=== PATIENT | female | born 1985 | race Caucasian/White ===

== ENCOUNTER 2016-10-05 09:31 | Emergency (ER) | payer SELFPAY ==
[~2016-10-05] VITALS: Ht 162.6 cm; Wt 129.0 kg
[2016-10-05 09:35] VITALS: BP 151/94; TEMP 98.2
[2016-10-05] MEDS ORDERED: PREDNISONE20 MG PO (10:37)
[2016-10-05] MEDS ORDERED: KEPPRA 500MG500 MG PO (10:38)
[2016-10-05] MEDS ORDERED: KLOR-CON SPRIN10 MEQ PO (10:39)
[2016-10-05 10:50] LABS: BASO % 0.2 % (0.0-2.0); EOS # 0.1 (0.0-0.7); EOS % 1.7 % (0-4.0); GRAN # 4.6 (1.4-6.5); GRAN % 71.2 % (42.2-75.2); HEMATOCRIT 39.2 % (37.0-47.0); HEMOGLOBIN 13.1 g/dl (12.5-16.0); LYMPH # 1.4 (1.2-3.4); LYMPH % 21.8 % (20.0-51.0); MEAN CELL VOLUME 89 fl (80.0-100.0); MEAN CORPUSCULAR HEMOGLOBIN 30 pg (27.0-31.0); MEAN CORPUSCULAR HGB CONC 33 g/dl (33.0-37.0); MEAN PLATELET VOLUME 10.1 fl (7.4-10.4); MONO # 0.3 (0.1-0.6); MONO % 4.8 % (1.7-9.3); PLATELET COUNT 263 K/mm3 (130-400); RED BLOOD COUNT 4.41 M/mm3 (4.10-5.30); REDCELL DISTRIBUTION WIDTH-CV 13.9 % (11.5-14.5); WHITE BLOOD COUNT 6.4 K/mm3 (4.8-10.8)
[2016-10-05 10:58] LABS: PH 7 (5-8); URINE APPEARANCE Cloudy; URINE BACTERIA Rare /hpf; URINE BILIRUBIN Negative (NEGATIVE); URINE BLOOD 3+ (NEGATIVE); URINE COLOR Yellow; URINE GLUCOSE Negative (NEGATIVE); URINE KETONE Negative (NEGATIVE); URINE UROBILINOGEN Negative (NEGATIVE)
[2016-10-05 11:04] LABS: ADJUSTED CALCIUM 9.5 mg/dL (8.4-10.2); BILIRUBIN,TOTAL 0.5 mg/dL (0.0-1.0); CALCIUM 9.5 mg/dL (8.4-10.2); CREATININE, serum 0.8 mg/dL (0.52-1.25); TOTAL PROTEIN 7.4 gm/dL (6.4-8.2)
[2016-10-05] MEDS ORDERED: NORCO 325 MG-7.1 TAB PO (11:26)
[2016-10-05] MEDS ORDERED: ZOFRAN ODT4 MG PO (11:26)
[2016-10-05 11:40] VITALS: PULSE 99
== END 2016-10-05 14:51 | disposition home or self-care (01) ==
LOC: COL.ER 09:31
PROVIDERS: Physician Assistant
DX: R10.31 Right lower quadrant pain (principal); R10.11 Right upper quadrant pain; Z87.442 Personal history of urinary calculi; E66.01 Morbid (severe) obesity due to excess calories; Z68.42 Body mass index [BMI] 45.0-49.9, adult
CPT/HCPCS: J1170; J2405; J7030

== ENCOUNTER 2016-10-10 10:42 | Emergency (ER) | payer MEDICAID ==
[~2016-10-10] VITALS: Ht 162.6 cm; Wt 128.6 kg
[~2016-10-10 10:42] MED LIST: KEPPRA 500MG500 MG PO; KLOR-CON SPRIN10 MEQ PO; NORCO 325 MG-7.1 TAB PO; PREDNISONE20 MG PO; ZOFRAN ODT4 MG PO
[2016-10-10 11:28] LABS: PH 6 (5-8); SQUAMOUS EPITHELIAL 20-50 /hpf; URINE APPEARANCE Cloudy; URINE BACTERIA None Seen /hpf; URINE BILIRUBIN Negative (NEGATIVE); URINE BLOOD 3+ (NEGATIVE); URINE COLOR Red; URINE GLUCOSE Negative (NEGATIVE); URINE KETONE Negative (NEGATIVE); URINE RBC >50 /hpf; URINE UROBILINOGEN Negative (NEGATIVE)
[2016-10-10 13:10] VITALS: BP 110/78; PULSE 93; TEMP 98.1
== END 2016-10-10 13:10 | disposition home or self-care (01) ==
LOC: COL.ER 10:42
PROVIDERS: Nurse Practitioner
DX: R10.31 Right lower quadrant pain (principal); R31.9 Hematuria, unspecified; N20.0 Calculus of kidney; Z87.442 Personal history of urinary calculi; M54.89 Other dorsalgia
CPT/HCPCS: J2360

== ENCOUNTER 2016-12-10 18:26 | Emergency (ER) | payer MEDICAID ==
[~2016-12-10] VITALS: Ht 162.6 cm; Wt 128.6 kg
[2016-12-10 18:29] VITALS: TEMP 97.9
[2016-12-10] MEDS ORDERED: CYMBALTA 30MG30 MG PO (19:06)
[2016-12-10] MEDS ORDERED: UROCIT-K 5540 MG/TAB PO (19:07)
[2016-12-10 19:50] LABS: B-TYPE NATRIURETIC PEPTIDE 85 pg/mL (0-125); TROPONIN-I < 0.012 ng/mL (0.000-0.034)
[2016-12-10] MEDS ORDERED: ULTRAM 50MG TAB50 MG PO (20:40)
[2016-12-10 21:16] VITALS: BP 104/68; PULSE 90
[2016-12-10] MEDS ORDERED: KEPPRA 500MG500 MG PO (21:21)
== END 2016-12-10 21:31 | disposition home or self-care (01) ==
LOC: COL.ER 18:26
PROVIDERS: Emergency Medicine
DX: R56.9 Unspecified convulsions (principal); T42.6X6A Underdosing of other antiepileptic and sedative-hypnotic drugs, initial encounter; Z91.138 Patient's unintentional underdosing of medication regimen for other reason; R07.9 Chest pain, unspecified; Z95.0 Presence of cardiac pacemaker; R06.00 Dyspnea, unspecified

== ENCOUNTER 2016-12-16 10:34 | Emergency (ER) | payer MEDICAID ==
[~2016-12-16] VITALS: Ht 162.6 cm; Wt 128.6 kg
[~2016-12-16 10:34] MED LIST changes: +CYMBALTA 30MG30 MG PO; +ULTRAM 50MG TAB50 MG PO; +UROCIT-K 5540 MG/TAB PO
[2016-12-16] MEDS ORDERED: LIORESAL 1010 MG/TAB PO (13:03)
[2016-12-16] MEDS ORDERED: PERCOCET 325 MG1 TA2 PO (13:03)
[2016-12-16 13:22] VITALS: BP 130/76; PULSE 85; TEMP 98.1
== END 2016-12-16 13:24 | disposition home or self-care (01) ==
LOC: COL.ER 10:34
DX: M54.5 Low back pain (principal); M62.830 Muscle spasm of back; W10.8XXA Fall (on) (from) other stairs and steps, initial encounter; Y92.89 Other specified places as the place of occurrence of the external cause; Z95.0 Presence of cardiac pacemaker
CPT/HCPCS: J3360

== ENCOUNTER 2017-01-31 21:57 | Emergency (ER) | payer MEDICAID ==
[~2017-01-31] VITALS: Ht 162.6 cm; Wt 128.6 kg
[~2017-01-31 21:57] MED LIST changes: +LIORESAL 1010 MG/TAB PO; +PERCOCET 325 MG1 TA2 PO
[2017-01-31 22:00] VITALS: TEMP 98
[2017-01-31] MEDS ORDERED: PLAQUENIL 200M200 MG PO (22:11)
[2017-01-31 22:58] LABS: BASO % 0.3 % (0.0-2.0); EOS # 0.1 (0.0-0.7); EOS % 1.2 % (0-4.0); GRAN # 4.9 (1.4-6.5); GRAN % 63.5 % (42.2-75.2); HEMATOCRIT 43.7 % (37.0-47.0); HEMOGLOBIN 14.5 g/dl (12.5-16.0); LYMPH # 2.3 (1.2-3.4); LYMPH % 30.1 % (20.0-51.0); MEAN CELL VOLUME 89 fl (80.0-100.0); MEAN CORPUSCULAR HEMOGLOBIN 30 pg (27.0-31.0); MEAN CORPUSCULAR HGB CONC 33 g/dl (33.0-37.0); MEAN PLATELET VOLUME 10.3 fl (7.4-10.4); MONO # 0.4 (0.1-0.6); MONO % 4.6 % (1.7-9.3); PLATELET COUNT 280 K/mm3 (130-400); RED BLOOD COUNT 4.91 M/mm3 (4.10-5.30); REDCELL DISTRIBUTION WIDTH-CV 14.4 % (11.5-14.5); WHITE BLOOD COUNT 7.7 K/mm3 (4.8-10.8)
[2017-01-31 23:05] LABS: PH 5 (5-8); URINE APPEARANCE Clear; URINE BACTERIA Rare /hpf; URINE BILIRUBIN Negative (NEGATIVE); URINE BLOOD Negative (NEGATIVE); URINE COLOR Yellow; URINE GLUCOSE Negative (NEGATIVE); URINE KETONE Negative (NEGATIVE); URINE UROBILINOGEN Negative (NEGATIVE)
[2017-01-31 23:07] LABS: CALCIUM 9.5 mg/dL (8.4-10.2); CREATININE, serum 0.96 mg/dL (0.52-1.25); POTASSIUM 3.3 mmol/L (3.4-5.0)
[2017-01-31] MEDS ORDERED: PHENERGAN 25 TA25 MG PO (23:15)
[2017-01-31] MEDS ORDERED: K-TAB10 PO (23:15)
[2017-02-01 00:49] VITALS: BP 115/75; PULSE 82
== END 2017-02-01 00:50 | disposition home or self-care (01) ==
LOC: COL.ER 21:57
PROVIDERS: Emergency Medicine
DX: R10.9 Unspecified abdominal pain (principal); E87.6 Hypokalemia; G40.909 Epilepsy, unspecified, not intractable, without status epilepticus; F32.9 Major depressive disorder, single episode, unspecified; Z95.0 Presence of cardiac pacemaker; Z90.49 Acquired absence of other specified parts of digestive tract
CPT/HCPCS: J1170; J2550; J7030

== ENCOUNTER 2017-03-11 15:17 | Emergency (ER) | payer MEDICAID ==
[~2017-03-11] VITALS: Ht 162.6 cm; Wt 123.6 kg
[~2017-03-11 15:17] MED LIST changes: +K-TAB10 PO; +PHENERGAN 25 TA25 MG PO; +PLAQUENIL 200M200 MG PO
[2017-03-11 15:32] VITALS: BP 120/67; TEMP 97.3
[2017-03-11] MEDS ORDERED: PLAQUENIL 200M200 MG PO (16:11)
[2017-03-11] MEDS ORDERED: NORCO 325 MG-51 TAB PO (16:47)
[2017-03-11] MEDS ORDERED: CRUTCHES MC (16:52)
[2017-03-11 17:29] VITALS: PULSE 98
== END 2017-03-11 17:09 | disposition home or self-care (01) ==
LOC: COL.ER 15:17
DX: S80.811A Abrasion, right lower leg, initial encounter (principal); G40.909 Epilepsy, unspecified, not intractable, without status epilepticus; I42.9 Cardiomyopathy, unspecified; F32.9 Major depressive disorder, single episode, unspecified; F41.9 Anxiety disorder, unspecified; F17.210 Nicotine dependence, cigarettes, uncomplicated; Z95.0 Presence of cardiac pacemaker; Z90.49 Acquired absence of other specified parts of digestive tract; Z90.89 Acquired absence of other organs; Z98.890 Other specified postprocedural states; W10.9XXA Fall (on) (from) unspecified stairs and steps, initial encounter; Y92.008 Other place in unspecified non-institutional (private) residence as the place of occurrence of the external cause

== ENCOUNTER 2017-03-19 18:20 | Emergency (ER) | payer MEDICAID ==
[~2017-03-19] VITALS: Ht 162.6 cm; Wt 124.5 kg
[~2017-03-19 18:20] MED LIST changes: +CRUTCHES MC; +NORCO 325 MG-51 TAB PO
[2017-03-19 18:29] VITALS: TEMP 98.7
[2017-03-19 19:10] LABS: PH 5 (5-8); SQUAMOUS EPITHELIAL 20-50 /hpf; URINE APPEARANCE Cloudy; URINE BACTERIA Rare /hpf; URINE BILIRUBIN Negative (NEGATIVE); URINE BLOOD 3+ (NEGATIVE); URINE COLOR Yellow; URINE GLUCOSE Negative (NEGATIVE); URINE KETONE Negative (NEGATIVE); URINE RBC >50 /hpf; URINE UROBILINOGEN Negative (NEGATIVE); URINE WBC None Seen /hpf
[2017-03-19 20:23] LABS: BASO % 0.1 % (0.0-2.0); EOS # 0.1 (0.0-0.7); GRAN # 4.7 (1.4-6.5); GRAN % 68.7 % (42.2-75.2); HEMATOCRIT 37.3 % (37.0-47.0); HEMOGLOBIN 12.3 g/dl (12.5-16.0); LYMPH # 1.7 (1.2-3.4); LYMPH % 24.3 % (20.0-51.0); MEAN CELL VOLUME 89 fl (80.0-100.0); MEAN CORPUSCULAR HEMOGLOBIN 29 pg (27.0-31.0); MEAN CORPUSCULAR HGB CONC 33 g/dl (33.0-37.0); MEAN PLATELET VOLUME 10.1 fl (7.4-10.4); MONO # 0.3 (0.1-0.6); MONO % 4.8 % (1.7-9.3); PLATELET COUNT 237 K/mm3 (130-400); REDCELL DISTRIBUTION WIDTH-CV 14.6 % (11.5-14.5); WHITE BLOOD COUNT 6.8 K/mm3 (4.8-10.8)
[2017-03-19] MEDS ORDERED: ZOFRAN 4MG T4 MG/TAB PO (20:30)
[2017-03-19 20:34] LABS: CALCIUM 9.1 mg/dL (8.4-10.2); CREATININE, serum 0.82 mg/dL (0.52-1.25)
[2017-03-19 20:59] VITALS: BP 113/75; PULSE 88
== END 2017-03-19 21:00 | disposition home or self-care (01) ==
LOC: COL.ER 18:20
PROVIDERS: Emergency Medicine; Nurse Practitioner
DX: N20.1 Calculus of ureter (principal); Z87.442 Personal history of urinary calculi; M32.9 Systemic lupus erythematosus, unspecified
CPT/HCPCS: J1170; J2550; J7030

== ENCOUNTER 2017-03-27 21:39 | Emergency (ER) | payer MEDICAID ==
[~2017-03-27] VITALS: Ht 165.1 cm; Wt 129.1 kg
[~2017-03-27 21:39] MED LIST changes: +ZOFRAN 4MG T4 MG/TAB PO
[2017-03-27 21:42] VITALS: BP 115/75; TEMP 98.4
[2017-03-27] MEDS ORDERED: ULTRAM 50MG TAB50 MG PO (21:45)
[2017-03-27] MEDS ORDERED: BACTRIM DS 8001 TAB PO (21:46)
[2017-03-27 22:36] LABS: BASO % 0.4 % (0.0-2.0); EOS # 0.2 (0.0-0.7); EOS % 2.4 % (0-4.0); GRAN # 4.7 (1.4-6.5); GRAN % 66.2 % (42.2-75.2); LYMPH # 1.8 (1.2-3.4); LYMPH % 25.9 % (20.0-51.0); MEAN CELL VOLUME 88 fl (80.0-100.0); MEAN CORPUSCULAR HEMOGLOBIN 30 pg (27.0-31.0); MEAN CORPUSCULAR HGB CONC 33 g/dl (33.0-37.0); MEAN PLATELET VOLUME 9.8 fl (7.4-10.4); MONO # 0.3 (0.1-0.6); MONO % 4.8 % (1.7-9.3); PLATELET COUNT 298 K/mm3 (130-400); RED BLOOD COUNT 4.41 M/mm3 (4.10-5.30); REDCELL DISTRIBUTION WIDTH-CV 14.3 % (11.5-14.5); WHITE BLOOD COUNT 7.1 K/mm3 (4.8-10.8)
[2017-03-27 22:43] LABS: PH 5 (5-8); SQUAMOUS EPITHELIAL 0-2 /hpf; URINE APPEARANCE Hazy; URINE BACTERIA None Seen /hpf; URINE BILIRUBIN Negative (NEGATIVE); URINE BLOOD 3+ (NEGATIVE); URINE COLOR Yellow; URINE GLUCOSE Negative (NEGATIVE); URINE KETONE Negative (NEGATIVE); URINE RBC >50 /hpf; URINE UROBILINOGEN Negative (NEGATIVE)
[2017-03-27 22:44] LABS: URINE WBC 20-50 /hpf
[2017-03-27 22:45] LABS: ADJUSTED CALCIUM 9.3 mg/dL (8.4-10.2); ALBUMIN 4.2 gm/dL (3.5-5.0); BILIRUBIN,TOTAL 0.4 mg/dL (0.0-1.0); CALCIUM 9.5 mg/dL (8.4-10.2); CREATININE, serum 0.94 mg/dL (0.52-1.25); POTASSIUM 3.8 mmol/L (3.4-5.0); TOTAL PROTEIN 7.8 gm/dL (6.4-8.2)
[2017-03-27 23:01] LABS: C-REACTIVE PROTEIN 1.8 mg/dL (0.0-0.9)
[2017-03-28 00:13] VITALS: PULSE 82
== END 2017-03-28 00:16 | disposition home or self-care (01) ==
LOC: COL.ER 21:39
PROVIDERS: Family Medicine
DX: N92.0 Excessive and frequent menstruation with regular cycle (principal); G40.909 Epilepsy, unspecified, not intractable, without status epilepticus; I42.9 Cardiomyopathy, unspecified; Z87.442 Personal history of urinary calculi; Z95.0 Presence of cardiac pacemaker; Z98.51 Tubal ligation status
CPT/HCPCS: J1170; J2550; J7030

== ENCOUNTER 2017-04-19 19:54 | Emergency (ER) | payer MEDICAID ==
[~2017-04-19] VITALS: Ht 162.6 cm; Wt 128.2 kg
[~2017-04-19 19:54] MED LIST changes: +BACTRIM DS 8001 TAB PO
[2017-04-19 19:56] VITALS: BP 146/87; TEMP 99.1
[2017-04-19 20:50] LABS: BASO % 0.1 % (0.0-2.0); EOS # 0.2 (0.0-0.7); GRAN # 5.2 (1.4-6.5); GRAN % 67.3 % (42.2-75.2); LYMPH % 25.3 % (20.0-51.0); MEAN CELL VOLUME 91 fl (80.0-100.0); MEAN CORPUSCULAR HGB CONC 33 g/dl (33.0-37.0); MEAN PLATELET VOLUME 9.7 fl (7.4-10.4); MONO # 0.3 (0.1-0.6); MONO % 3.9 % (1.7-9.3); PLATELET COUNT 264 K/mm3 (130-400); RED BLOOD COUNT 3.81 M/mm3 (4.10-5.30); REDCELL DISTRIBUTION WIDTH-CV 14.6 % (11.5-14.5); WHITE BLOOD COUNT 7.8 K/mm3 (4.8-10.8)
[2017-04-19 20:53] LABS: HEMATOCRIT 34.5 % (37.0-47.0); HEMOGLOBIN 11.3 g/dl (12.5-16.0); MEAN CORPUSCULAR HEMOGLOBIN 30 pg (27.0-31.0)
[2017-04-19 21:05] LABS: ADJUSTED CALCIUM 9.2 mg/dL (8.4-10.2); ALBUMIN 3.6 gm/dL (3.5-5.0); BILIRUBIN,TOTAL 0.4 mg/dL (0.0-1.0); CALCIUM 8.9 mg/dL (8.4-10.2); CREATININE, serum 0.75 mg/dL (0.52-1.25); POTASSIUM 3.6 mmol/L (3.4-5.0); TOTAL PROTEIN 6.8 gm/dL (6.4-8.2)
[2017-04-19 21:18] LABS: PH 6 (5-8); URINE APPEARANCE Cloudy; URINE BACTERIA Rare /hpf; URINE BILIRUBIN Negative (NEGATIVE); URINE BLOOD 3+ (NEGATIVE); URINE COLOR Yellow; URINE GLUCOSE Negative (NEGATIVE); URINE KETONE Trace (NEGATIVE); URINE RBC >50 /hpf; URINE UROBILINOGEN Negative (NEGATIVE)
[2017-04-19 22:20] VITALS: PULSE 96
== END 2017-04-19 22:26 | disposition home or self-care (01) ==
LOC: COL.ER 19:54
PROVIDERS: Emergency Medicine
DX: R31.9 Hematuria, unspecified (principal); N39.0 Urinary tract infection, site not specified; G40.909 Epilepsy, unspecified, not intractable, without status epilepticus; G72.9 Myopathy, unspecified; G89.29 Other chronic pain; M32.9 Systemic lupus erythematosus, unspecified; F17.210 Nicotine dependence, cigarettes, uncomplicated; Z90.89 Acquired absence of other organs; Z90.49 Acquired absence of other specified parts of digestive tract; Z95.0 Presence of cardiac pacemaker
CPT/HCPCS: J1170; J2550; J7030

== ENCOUNTER 2017-05-07 15:22 | Emergency (ER) | payer MEDICAID ==
[~2017-05-07] VITALS: Ht 162.6 cm; Wt 123.6 kg
[2017-05-07 15:34] VITALS: BP 137/84; TEMP 99
[2017-05-07 16:51] VITALS: PULSE 110
== END 2017-05-07 16:51 | disposition home or self-care (01) ==
LOC: COL.ER 15:22
DX: S99.911A Unspecified injury of right ankle, initial encounter (principal); F17.210 Nicotine dependence, cigarettes, uncomplicated; W19.XXXA Unspecified fall, initial encounter; X50.1XXA Overexertion from prolonged static or awkward postures, initial encounter
CPT/HCPCS: L2114

== ENCOUNTER 2017-05-29 18:01 | Emergency (ER) | payer MEDICAID ==
[~2017-05-29] VITALS: Ht 162.6 cm; Wt 139.4 kg
[2017-05-29 18:14] VITALS: BP 146/71; TEMP 98.7
[2017-05-29] MEDS ORDERED: ULTRAM 50MG TAB50 MG PO (18:19)
[2017-05-29] MEDS ORDERED: WELLBUTRIN 100100 MG PO (18:19)
[2017-05-29] MEDS ORDERED: AMBIEN 10MG10 MG PO (18:19)
[2017-05-29 19:47] LABS: PH 6 (5-8); URINE BACTERIA None Seen /hpf; URINE BILIRUBIN Negative (NEGATIVE); URINE BLOOD 3+ (NEGATIVE); URINE COLOR Yellow; URINE GLUCOSE Negative (NEGATIVE); URINE KETONE Negative (NEGATIVE); URINE RBC >50 /hpf; URINE UROBILINOGEN Negative (NEGATIVE)
[2017-05-29 19:48] LABS: URINE APPEARANCE Cloudy
[2017-05-29 19:55] LABS: BASO % 0.1 % (0.0-2.0); EOS # 0.1 (0.0-0.7); EOS % 1.3 % (0-4.0); GRAN # 5.9 (1.4-6.5); HEMATOCRIT 39.8 % (37.0-47.0); HEMOGLOBIN 13.1 g/dl (12.5-16.0); LYMPH # 2.1 (1.2-3.4); LYMPH % 24.4 % (20.0-51.0); MEAN CELL VOLUME 88 fl (80.0-100.0); MEAN CORPUSCULAR HEMOGLOBIN 29 pg (27.0-31.0); MEAN CORPUSCULAR HGB CONC 33 g/dl (33.0-37.0); MEAN PLATELET VOLUME 10.1 fl (7.4-10.4); MONO # 0.3 (0.1-0.6); PLATELET COUNT 251 K/mm3 (130-400); RED BLOOD COUNT 4.51 M/mm3 (4.10-5.30); REDCELL DISTRIBUTION WIDTH-CV 13.6 % (11.5-14.5); WHITE BLOOD COUNT 8.4 K/mm3 (4.8-10.8)
[2017-05-29 20:04] LABS: CALCIUM 9.4 mg/dL (8.4-10.2); CREATININE, serum 0.82 mg/dL (0.52-1.25); POTASSIUM 3.7 mmol/L (3.4-5.0)
[2017-05-29] MEDS ORDERED: NORCO 325 MG-51 TAB PO (20:18)
[2017-05-29] MEDS ORDERED: FLOMAX 0.40.4 MG/CAP PO (20:18)
[2017-05-29 20:26] VITALS: PULSE 89
== END 2017-05-29 20:30 | disposition home or self-care (01) ==
LOC: COL.ER 18:01
PROVIDERS: Emergency Medicine
DX: R10.9 Unspecified abdominal pain (principal); F17.210 Nicotine dependence, cigarettes, uncomplicated; Z32.02 Encounter for pregnancy test, result negative; Z87.442 Personal history of urinary calculi; Z90.49 Acquired absence of other specified parts of digestive tract
CPT/HCPCS: J1170

== ENCOUNTER 2017-07-30 22:26 | Emergency (ER) | payer MEDICAID ==
[~2017-07-30] VITALS: Ht 162.6 cm; Wt 120.5 kg
[~2017-07-30 22:26] MED LIST changes: +AMBIEN 10MG10 MG PO; +FLOMAX 0.40.4 MG/CAP PO; +WELLBUTRIN 100100 MG PO
[2017-07-30 22:27] VITALS: TEMP 97.9
[2017-07-30 23:29] LABS: COLLECTION METHOD CLEAN CATCH
[2017-07-30 23:38] LABS: BASO % 0.3 % (0.0-2.0); EOS # 0.3 (0.0-0.7); EOS % 3.4 % (0-4.0); GRAN # 4.7 (1.4-6.5); HEMATOCRIT 42.6 % (37.0-47.0); LYMPH # 2.6 (1.2-3.4); LYMPH % 32.2 % (20.0-51.0); MEAN CELL VOLUME 88 fl (80.0-100.0); MEAN CORPUSCULAR HEMOGLOBIN 29 pg (27.0-31.0); MEAN CORPUSCULAR HGB CONC 33 g/dl (33.0-37.0); MEAN PLATELET VOLUME 9.9 fl (7.4-10.4); MONO # 0.4 (0.1-0.6); MONO % 4.8 % (1.7-9.3); PLATELET COUNT 295 K/mm3 (130-400); RED BLOOD COUNT 4.82 M/mm3 (4.10-5.30)
[2017-07-30 23:44] LABS: INFLUENZA A NEGATIVE; INFLUENZA B NEGATIVE
[2017-07-30 23:55] LABS: ADJUSTED CALCIUM 9.1 mg/dL (8.4-10.2); ALANINE AMINOTRANSFERASE 29 U/L (9-52); ALBUMIN 4.3 gm/dL (3.5-5.0); ALKALINE PHOSPHATASE 109 U/L (50-136); ANION GAP 8 mmol/L (7-16); BILIRUBIN,TOTAL 0.6 mg/dL (0.0-1.0); BLOOD UREA NITROGEN 14 mg/dL (7-17); CALCIUM 9.3 mg/dL (8.4-10.2); CARBON DIOXIDE 24 mmol/L (22-30); CHLORIDE 106 mmol/L (98-107); CREATININE, serum 0.85 mg/dL (0.52-1.25); GLUCOSE 91 mg/dL (74-106); POTASSIUM 4.2 mmol/L (3.4-5.0); SODIUM 138 mmol/L (137-145); TOTAL PROTEIN 8.3 gm/dL (6.4-8.2)
[2017-07-30 23:59] LABS: MUCOUS Present /lpf; PH 5 (5-8); SQUAMOUS EPITHELIAL 20-50 /hpf; URINE APPEARANCE Cloudy; URINE BACTERIA Rare /hpf; URINE BILIRUBIN Negative (NEGATIVE); URINE BLOOD Negative (NEGATIVE); URINE COLOR Yellow; URINE GLUCOSE Negative (NEGATIVE); URINE KETONE Negative (NEGATIVE); URINE LEUKOCYTE ESTERASE 1+ (NEGATIVE); URINE PROTEIN(semi-quant) 1+ (NEGATIVE); URINE UROBILINOGEN >=4.0 mg/dL (NEGATIVE)
[2017-07-31 00:31] LABS: C-REACTIVE PROTEIN 1.7 mg/dL (0.0-0.9); PHOSPHOROUS 3.6 mg/dL (2.5-4.5)
[2017-07-31 00:37] LABS: ERYTHROCYTE SEDIMENTATION RATE 42 mm/hr (0-20)
[2017-07-31 00:42] LABS: TROPONIN-I < 0.012 ng/mL (0.000-0.034)
[2017-07-31 01:49] LABS: COLLECTION METHOD CATHETER
[2017-07-31 01:54] LABS: PH 5 (5-8); SQUAMOUS EPITHELIAL 0-2 /hpf; URINE APPEARANCE Clear; URINE BACTERIA None Seen /hpf; URINE BILIRUBIN Negative (NEGATIVE); URINE BLOOD 1+ (NEGATIVE); URINE COLOR Straw; URINE GLUCOSE Negative (NEGATIVE); URINE KETONE Negative (NEGATIVE); URINE LEUKOCYTE ESTERASE 1+ (NEGATIVE); URINE PROTEIN(semi-quant) Negative (NEGATIVE); URINE RBC 0-2 /hpf; URINE UROBILINOGEN Negative (NEGATIVE)
[2017-07-31] MEDS ORDERED: KEPPRA 500MG500 MG PO (02:06)
[2017-07-31 02:24] VITALS: BP 115/68; PULSE 87
== END 2017-07-31 02:27 | disposition home or self-care (01) ==
LOC: COL.ER 22:26
PROVIDERS: Emergency Medicine
DX: G40.909 Epilepsy, unspecified, not intractable, without status epilepticus (principal); Z90.49 Acquired absence of other specified parts of digestive tract; Z98.51 Tubal ligation status; Z87.39 Personal history of other diseases of the musculoskeletal system and connective tissue
CPT/HCPCS: J1170; J1200; J1953; J2550; J7030

== ENCOUNTER 2017-08-02 10:27 | Emergency (ER) | payer MEDICAID ==
[~2017-08-02] VITALS: Ht 162.6 cm; Wt 119.1 kg
[2017-08-02 10:35] VITALS: TEMP 98.6
[2017-08-02 11:36] LABS: BASO % 0.2 % (0.0-2.0); EOS # 0.2 (0.0-0.7); EOS % 2.8 % (0-4.0); GRAN # 6.3 (1.4-6.5); GRAN % 72.8 % (42.2-75.2); HEMATOCRIT 42.1 % (37.0-47.0); HEMOGLOBIN 13.9 g/dl (12.5-16.0); LYMPH # 1.7 (1.2-3.4); LYMPH % 19.7 % (20.0-51.0); MEAN CELL VOLUME 90 fl (80.0-100.0); MEAN CORPUSCULAR HEMOGLOBIN 30 pg (27.0-31.0); MEAN CORPUSCULAR HGB CONC 33 g/dl (33.0-37.0); MEAN PLATELET VOLUME 10.4 fl (7.4-10.4); MONO # 0.4 (0.1-0.6); MONO % 4.3 % (1.7-9.3); PLATELET COUNT 299 K/mm3 (130-400); RED BLOOD COUNT 4.68 M/mm3 (4.10-5.30); WHITE BLOOD COUNT 8.6 K/mm3 (4.8-10.8)
[2017-08-02 11:46] LABS: ADJUSTED CALCIUM 9.1 mg/dL (8.4-10.2); ALANINE AMINOTRANSFERASE 28 U/L (9-52); ALBUMIN 4.2 gm/dL (3.5-5.0); ALKALINE PHOSPHATASE 112 U/L (50-136); ANION GAP 9 mmol/L (7-16); BILIRUBIN,TOTAL 0.4 mg/dL (0.0-1.0); BLOOD UREA NITROGEN 16 mg/dL (7-17); C-REACTIVE PROTEIN 1.2 mg/dL (0.0-0.9); CALCIUM 9.3 mg/dL (8.4-10.2); CARBON DIOXIDE 23 mmol/L (22-30); CHLORIDE 107 mmol/L (98-107); GLUCOSE 100 mg/dL (74-106); POTASSIUM 4.3 mmol/L (3.4-5.0); SODIUM 139 mmol/L (137-145); TOTAL PROTEIN 7.7 gm/dL (6.4-8.2)
[2017-08-02 12:00] LABS: PROLACTIN 9.6 ng/mL (3.0-18.6)
[2017-08-02 12:12] LABS: TROPONIN-I < 0.012 ng/mL (0.000-0.034)
[2017-08-02 12:16] LABS: COLLECTION METHOD CATHETER
[2017-08-02 12:26] LABS: MUCOUS Present /lpf; PH 5 (5-8); URINE APPEARANCE Clear; URINE BACTERIA None Seen /hpf; URINE BILIRUBIN Negative (NEGATIVE); URINE BLOOD 2+ (NEGATIVE); URINE COLOR Yellow; URINE GLUCOSE Negative (NEGATIVE); URINE KETONE Negative (NEGATIVE); URINE LEUKOCYTE ESTERASE Negative (NEGATIVE); URINE PROTEIN(semi-quant) Negative (NEGATIVE); URINE RBC 0-2 /hpf; URINE UROBILINOGEN Negative (NEGATIVE); URINE WBC 0-2 /hpf
[2017-08-02 13:40] VITALS: BP 129/92; PULSE 93
== END 2017-08-02 13:37 | disposition home or self-care (01) ==
LOC: COL.ER 10:27
PROVIDERS: Emergency Medicine
DX: R51 Headache (principal); R07.9 Chest pain, unspecified; G40.909 Epilepsy, unspecified, not intractable, without status epilepticus; F17.210 Nicotine dependence, cigarettes, uncomplicated; Z86.2 Personal history of diseases of the blood and blood-forming organs and certain disorders involving the immune mechanism
CPT/HCPCS: J2060; J2405; J7030

== ENCOUNTER 2017-08-14 14:04 | Emergency (ER) | payer MEDICAID ==
[~2017-08-14] VITALS: Ht 162.6 cm; Wt 121.8 kg
[2017-08-14 14:08] VITALS: TEMP 97.1
[2017-08-14 14:51] LABS: COLLECTION METHOD CLEAN CATCH
[2017-08-14 14:55] LABS: BASO % 0.4 % (0.0-2.0); EOS # 0.2 (0.0-0.7); EOS % 2.9 % (0-4.0); GRAN # 4.8 (1.4-6.5); GRAN % 67.2 % (42.2-75.2); HEMATOCRIT 43.1 % (37.0-47.0); LYMPH # 1.8 (1.2-3.4); LYMPH % 25.5 % (20.0-51.0); MEAN CELL VOLUME 90 fl (80.0-100.0); MEAN CORPUSCULAR HEMOGLOBIN 29 pg (27.0-31.0); MEAN CORPUSCULAR HGB CONC 33 g/dl (33.0-37.0); MEAN PLATELET VOLUME 10.2 fl (7.4-10.4); MONO # 0.3 (0.1-0.6); MONO % 3.9 % (1.7-9.3); PLATELET COUNT 280 K/mm3 (130-400); WHITE BLOOD COUNT 7.2 K/mm3 (4.8-10.8)
[2017-08-14 15:02] LABS: MUCOUS Present /lpf; PH 6 (5-8); SQUAMOUS EPITHELIAL 20-50 /hpf; URINE APPEARANCE Cloudy; URINE BACTERIA None Seen /hpf; URINE BILIRUBIN Negative (NEGATIVE); URINE BLOOD 3+ (NEGATIVE); URINE COLOR Red; URINE GLUCOSE Negative (NEGATIVE); URINE KETONE Negative (NEGATIVE); URINE LEUKOCYTE ESTERASE Negative (NEGATIVE); URINE PROTEIN(semi-quant) 2+ (NEGATIVE); URINE RBC >50 /hpf; URINE UROBILINOGEN Negative (NEGATIVE)
[2017-08-14 15:13] LABS: ADJUSTED CALCIUM 9.2 mg/dL (8.4-10.2); ALBUMIN 4.2 gm/dL (3.5-5.0); BILIRUBIN,TOTAL 0.4 mg/dL (0.0-1.0); C-REACTIVE PROTEIN 1.5 mg/dL (0.0-0.9); CALCIUM 9.4 mg/dL (8.4-10.2); CREATININE, serum 0.81 mg/dL (0.52-1.25); POTASSIUM 4.2 mmol/L (3.4-5.0); TOTAL PROTEIN 7.8 gm/dL (6.4-8.2)
[2017-08-14 16:21] VITALS: BP 128/78; PULSE 74
== END 2017-08-14 16:27 | disposition home or self-care (01) ==
LOC: COL.ER 14:04
PROVIDERS: Family Medicine
DX: R10.9 Unspecified abdominal pain (principal); Z90.89 Acquired absence of other organs
CPT/HCPCS: J1170; J2405; J2550; J7030

== ENCOUNTER 2017-09-22 13:00 | Emergency (ER) | payer MEDICAID ==
[~2017-09-22] VITALS: Ht 162.6 cm; Wt 121.8 kg
[2017-09-22 13:05] VITALS: TEMP 98.4
[2017-09-22] MEDS ORDERED: KEPPRA1000 MG PO (13:54)
[2017-09-22] MEDS ORDERED: AMBIEN 10MG10 MG PO (13:55)
[2017-09-22] MEDS ORDERED: WELLBUTRIN 100100 MG PO (13:55)
[2017-09-22] MEDS ORDERED: KLONOPIN 0.5MG0.5 MG PO (13:56)
[2017-09-22 14:16] LABS: COLLECTION METHOD CLEAN CATCH
[2017-09-22 14:18] LABS: BASO % 0.2 % (0.0-2.0); EOS % 0.3 % (0-4.0); GRAN # 7.4 (1.4-6.5); GRAN % 77.5 % (42.2-75.2); HEMATOCRIT 40.6 % (37.0-47.0); HEMOGLOBIN 13.7 g/dl (12.5-16.0); LYMPH # 1.6 (1.2-3.4); LYMPH % 16.7 % (20.0-51.0); MEAN CELL VOLUME 88 fl (80.0-100.0); MEAN CORPUSCULAR HEMOGLOBIN 30 pg (27.0-31.0); MEAN CORPUSCULAR HGB CONC 34 g/dl (33.0-37.0); MEAN PLATELET VOLUME 9.9 fl (7.4-10.4); MONO # 0.5 (0.1-0.6); MONO % 5.1 % (1.7-9.3); PLATELET COUNT 274 K/mm3 (130-400); REDCELL DISTRIBUTION WIDTH-CV 13.5 % (11.5-14.5)
[2017-09-22 14:25] LABS: MUCOUS Present /lpf; PH 5 (5-8); URINE APPEARANCE Cloudy; URINE BACTERIA None Seen /hpf; URINE BILIRUBIN Negative (NEGATIVE); URINE BLOOD 3+ (NEGATIVE); URINE COLOR Amber; URINE GLUCOSE Negative (NEGATIVE); URINE KETONE Negative (NEGATIVE); URINE LEUKOCYTE ESTERASE Negative (NEGATIVE); URINE NITRATE Negative (NEGATIVE); URINE PROTEIN(semi-quant) 2+ (NEGATIVE); URINE RBC >50 /hpf; URINE UROBILINOGEN Negative (NEGATIVE)
[2017-09-22 14:31] LABS: ALBUMIN 4.2 gm/dL (3.5-5.0); BILIRUBIN,TOTAL 0.3 mg/dL (0.0-1.0); C-REACTIVE PROTEIN 1.4 mg/dL (0.0-0.9); CALCIUM 9.6 mg/dL (8.4-10.2); CREATININE, serum 0.89 mg/dL (0.52-1.25); POTASSIUM 3.5 mmol/L (3.4-5.0); TOTAL PROTEIN 7.7 gm/dL (6.4-8.2)
[2017-09-22] MEDS ORDERED: NORCO 325 MG-51 TAB PO (15:41)
[2017-09-22 15:58] VITALS: BP 136/99; PULSE 90
== END 2017-09-22 15:58 | disposition home or self-care (01) ==
LOC: COL.ER 13:00
PROVIDERS: Emergency Medicine
DX: N23 Unspecified renal colic (principal); Z87.442 Personal history of urinary calculi; Z90.49 Acquired absence of other specified parts of digestive tract; Z90.89 Acquired absence of other organs; Z98.51 Tubal ligation status; F17.210 Nicotine dependence, cigarettes, uncomplicated
CPT/HCPCS: J1170; J2405; J7030

== ENCOUNTER 2017-10-12 10:33 | Emergency (ER) | payer MEDICAID ==
[~2017-10-12] VITALS: Ht 162.6 cm; Wt 118.2 kg
[~2017-10-12 10:33] MED LIST changes: +KEPPRA1000 MG PO; +KLONOPIN 0.5MG0.5 MG PO
[2017-10-12 11:38] LABS: COLLECTION METHOD CLEAN CATCH
[2017-10-12 11:38] LABS: BASO % 0.1 % (0.0-2.0); EOS # 0.2 (0.0-0.7); EOS % 3.2 % (0-4.0); GRAN # 4.7 (1.4-6.5); GRAN % 69.3 % (42.2-75.2); HEMATOCRIT 41.4 % (37.0-47.0); HEMOGLOBIN 13.5 g/dl (12.5-16.0); LYMPH # 1.5 (1.2-3.4); LYMPH % 22.2 % (20.0-51.0); MEAN CELL VOLUME 91 fl (80.0-100.0); MEAN CORPUSCULAR HEMOGLOBIN 30 pg (27.0-31.0); MEAN CORPUSCULAR HGB CONC 33 g/dl (33.0-37.0); MEAN PLATELET VOLUME 10.3 fl (7.4-10.4); MONO # 0.3 (0.1-0.6); MONO % 4.9 % (1.7-9.3); PLATELET COUNT 225 K/mm3 (130-400); RED BLOOD COUNT 4.57 M/mm3 (4.10-5.30); REDCELL DISTRIBUTION WIDTH-CV 13.5 % (11.5-14.5)
[2017-10-12 11:47] LABS: MUCOUS Present /lpf; PH 6 (5-8); URINE APPEARANCE Cloudy; URINE BACTERIA Moderate /hpf; URINE BILIRUBIN Negative (NEGATIVE); URINE BLOOD 3+ (NEGATIVE); URINE COLOR Amber; URINE GLUCOSE Negative (NEGATIVE); URINE KETONE Negative (NEGATIVE); URINE LEUKOCYTE ESTERASE 2+ (NEGATIVE); URINE NITRATE Positive (NEGATIVE); URINE PROTEIN(semi-quant) 1+ (NEGATIVE); URINE RBC >50 /hpf; URINE UROBILINOGEN Negative (NEGATIVE)
[2017-10-12 11:58] LABS: ALBUMIN 3.7 gm/dL (3.5-5.0); BILIRUBIN,TOTAL 0.3 mg/dL (0.0-1.0); CALCIUM 9.5 mg/dL (8.4-10.2); CREATININE, serum 0.75 mg/dL (0.52-1.25); POTASSIUM 4.1 mmol/L (3.4-5.0); TOTAL PROTEIN 7.2 gm/dL (6.4-8.2)
[2017-10-12] MEDS ORDERED: ULTRAM 50MG TAB50 MG PO (12:20)
[2017-10-12] MEDS ORDERED: CIPRO 500MG TA500 MG PO (12:34)
[2017-10-12] MEDS ORDERED: NORCO 325 MG-51 TAB PO (13:03)
[2017-10-12 13:04] VITALS: BP 130/70; PULSE 83; TEMP 98.2
== END 2017-10-12 13:03 | disposition home or self-care (01) ==
LOC: COL.ER 10:33
PROVIDERS: Family Medicine
DX: N20.1 Calculus of ureter (principal); N39.0 Urinary tract infection, site not specified; F17.210 Nicotine dependence, cigarettes, uncomplicated; Z87.442 Personal history of urinary calculi
CPT/HCPCS: J0696; J1170; J2405; J7030

== ENCOUNTER 2017-10-25 16:03 | Emergency (ER) | payer MEDICAID ==
[~2017-10-25] VITALS: Ht 162.6 cm; Wt 119.1 kg
[~2017-10-25 16:03] MED LIST changes: +CIPRO 500MG TA500 MG PO; +TESSALON P100 MG/CAP PO
[2017-10-25 16:08] VITALS: BP 135/97; TEMP 97.5
[2017-10-25 16:34] LABS: COLLECTION METHOD CLEAN CATCH
[2017-10-25 16:49] LABS: MUCOUS Present /lpf; PH 6 (5-8); URINE APPEARANCE Hazy; URINE BACTERIA None Seen /hpf; URINE BILIRUBIN Negative (NEGATIVE); URINE BLOOD 3+ (NEGATIVE); URINE CALCIUM OXALATE CRYSTAL Present /hpf; URINE COLOR Red; URINE GLUCOSE Negative (NEGATIVE); URINE KETONE Negative (NEGATIVE); URINE LEUKOCYTE ESTERASE Negative (NEGATIVE); URINE NITRATE Negative (NEGATIVE); URINE PROTEIN(semi-quant) 2+ (NEGATIVE); URINE RBC >50 /hpf; URINE UROBILINOGEN Negative (NEGATIVE)
[2017-10-25 17:27] LABS: BASO % 0.3 % (0.0-2.0); EOS # 0.2 (0.0-0.7); EOS % 2.5 % (0-4.0); GRAN % 72.5 % (42.2-75.2); HEMATOCRIT 45.1 % (37.0-47.0); HEMOGLOBIN 14.7 g/dl (12.5-16.0); LYMPH # 1.4 (1.2-3.4); LYMPH % 20.5 % (20.0-51.0); MEAN CELL VOLUME 91 fl (80.0-100.0); MEAN CORPUSCULAR HEMOGLOBIN 30 pg (27.0-31.0); MEAN CORPUSCULAR HGB CONC 33 g/dl (33.0-37.0); MEAN PLATELET VOLUME 10.3 fl (7.4-10.4); MONO # 0.3 (0.1-0.6); MONO % 3.9 % (1.7-9.3); PLATELET COUNT 297 K/mm3 (130-400); RED BLOOD COUNT 4.96 M/mm3 (4.10-5.30); REDCELL DISTRIBUTION WIDTH-CV 13.6 % (11.5-14.5)
[2017-10-25 17:36] LABS: ALBUMIN 4.7 gm/dL (3.5-5.0); BILIRUBIN,TOTAL 0.4 mg/dL (0.0-1.0); CALCIUM 9.8 mg/dL (8.4-10.2); CREATININE, serum 0.92 mg/dL (0.52-1.25); POTASSIUM 3.6 mmol/L (3.4-5.0); TOTAL PROTEIN 8.4 gm/dL (6.4-8.2)
[2017-10-25] MEDS ORDERED: BACTRIM DS 8001 TAB PO (18:06)
[2017-10-25 19:22] VITALS: PULSE 105
== END 2017-10-25 19:24 | disposition home or self-care (01) ==
LOC: COL.ER 16:03
PROVIDERS: Emergency Medicine
DX: N39.0 Urinary tract infection, site not specified (principal); N23 Unspecified renal colic; F17.210 Nicotine dependence, cigarettes, uncomplicated; Z87.442 Personal history of urinary calculi; Z98.890 Other specified postprocedural states; Z90.89 Acquired absence of other organs; Z90.49 Acquired absence of other specified parts of digestive tract; Z95.0 Presence of cardiac pacemaker
CPT/HCPCS: J0696; J1170; J3010; J7030

== ENCOUNTER 2017-12-11 01:11 | Emergency (ER) | payer MEDICAID ==
[~2017-12-11] VITALS: Ht 162.6 cm; Wt 115.5 kg
[2017-12-11 01:33] VITALS: BP 121/81; TEMP 97.4
[2017-12-11 01:45] LABS: COLLECTION METHOD CLEAN CATCH
[2017-12-11 02:06] LABS: PH 6 (5-8); URINE APPEARANCE Cloudy; URINE BACTERIA Occasional /hpf; URINE BILIRUBIN Negative (NEGATIVE); URINE BLOOD 3+ (NEGATIVE); URINE COLOR Amber; URINE GLUCOSE Negative (NEGATIVE); URINE KETONE Negative (NEGATIVE); URINE LEUKOCYTE ESTERASE Trace (NEGATIVE); URINE NITRATE Negative (NEGATIVE); URINE PROTEIN(semi-quant) 2+ (NEGATIVE); URINE RBC >50 /hpf; URINE UROBILINOGEN Negative (NEGATIVE)
[2017-12-11 02:21] LABS: BASO % 0.2 % (0.0-2.0); EOS % 0.2 % (0-4.0); GRAN # 8.9 (1.4-6.5); GRAN % 66.9 % (42.2-75.2); HEMOGLOBIN 14.2 g/dl (12.5-16.0); LYMPH # 3.6 (1.2-3.4); LYMPH % 27.3 % (20.0-51.0); MEAN CELL VOLUME 86 fl (80.0-100.0); MEAN CORPUSCULAR HEMOGLOBIN 29 pg (27.0-31.0); MEAN CORPUSCULAR HGB CONC 34 g/dl (33.0-37.0); MEAN PLATELET VOLUME 10.3 fl (7.4-10.4); MONO # 0.7 (0.1-0.6); MONO % 5.1 % (1.7-9.3); PLATELET COUNT 262 K/mm3 (130-400); RED BLOOD COUNT 4.86 M/mm3 (4.10-5.30); REDCELL DISTRIBUTION WIDTH-CV 14.3 % (11.5-14.5)
[2017-12-11 02:31] LABS: ALBUMIN 3.9 gm/dL (3.5-5.0); BILIRUBIN,TOTAL 0.2 mg/dL (0.0-1.0); CALCIUM 9.2 mg/dL (8.4-10.2); CREATININE, serum 0.92 mg/dL (0.52-1.25); POTASSIUM 3.6 mmol/L (3.4-5.0); TOTAL PROTEIN 7.7 gm/dL (6.4-8.2)
[2017-12-11] MEDS ORDERED: CEFTIN 250250 MG/TAB PO (02:48)
[2017-12-11 03:56] VITALS: PULSE 93
== END 2017-12-11 03:52 | disposition home or self-care (01) ==
LOC: COL.ER 01:11
PROVIDERS: Nurse Practitioner
DX: N39.0 Urinary tract infection, site not specified (principal); F17.210 Nicotine dependence, cigarettes, uncomplicated; Z87.442 Personal history of urinary calculi; Z98.890 Other specified postprocedural states; Z90.89 Acquired absence of other organs; Z90.49 Acquired absence of other specified parts of digestive tract; Z95.0 Presence of cardiac pacemaker
CPT/HCPCS: J2405; J7030

== ENCOUNTER 2017-12-15 19:48 | Emergency (ER) | payer MEDICAID ==
[~2017-12-15] VITALS: Ht 162.6 cm; Wt 120.0 kg
[~2017-12-15 19:48] MED LIST changes: +CEFTIN 250250 MG/TAB PO
[2017-12-15 20:10] VITALS: TEMP 97.7
[2017-12-15 20:23] LABS: COLLECTION METHOD CLEAN CATCH
[2017-12-15 20:37] LABS: PH 6 (5-8); URINE APPEARANCE Cloudy; URINE BACTERIA None Seen /hpf; URINE BILIRUBIN Negative (NEGATIVE); URINE BLOOD 3+ (NEGATIVE); URINE COLOR Red; URINE GLUCOSE Negative (NEGATIVE); URINE KETONE Negative (NEGATIVE); URINE LEUKOCYTE ESTERASE Negative (NEGATIVE); URINE NITRATE Negative (NEGATIVE); URINE PROTEIN(semi-quant) 1+ (NEGATIVE); URINE RBC >50 /hpf; URINE UROBILINOGEN Negative (NEGATIVE)
[2017-12-15 20:37] LABS: BASO % 0.3 % (0.0-2.0); EOS # 0.3 (0.0-0.7); EOS % 3.5 % (0-4.0); GRAN # 5.1 (1.4-6.5); GRAN % 64.3 % (42.2-75.2); HEMATOCRIT 46.1 % (37.0-47.0); HEMOGLOBIN 15.7 g/dl (12.5-16.0); LYMPH # 2.2 (1.2-3.4); LYMPH % 27.9 % (20.0-51.0); MEAN CELL VOLUME 87 fl (80.0-100.0); MEAN CORPUSCULAR HEMOGLOBIN 30 pg (27.0-31.0); MEAN CORPUSCULAR HGB CONC 34 g/dl (33.0-37.0); MEAN PLATELET VOLUME 9.8 fl (7.4-10.4); MONO # 0.3 (0.1-0.6); MONO % 3.7 % (1.7-9.3); PLATELET COUNT 260 K/mm3 (130-400); RED BLOOD COUNT 5.29 M/mm3 (4.10-5.30); REDCELL DISTRIBUTION WIDTH-CV 14.3 % (11.5-14.5)
[2017-12-15 20:48] LABS: ALBUMIN 4.1 gm/dL (3.5-5.0); BILIRUBIN,TOTAL 0.4 mg/dL (0.0-1.0); C-REACTIVE PROTEIN 1.3 mg/dL (0.0-0.9); CALCIUM 9.6 mg/dL (8.4-10.2); CREATININE, serum 0.83 mg/dL (0.52-1.25); POTASSIUM 4.2 mmol/L (3.4-5.0); TOTAL PROTEIN 8.7 gm/dL (6.4-8.2)
[2017-12-15] MEDS ORDERED: FLOMAX 0.40.4 MG/CAP PO (21:09)
[2017-12-15] MEDS ORDERED: NORCO 325 MG-51 TAB PO (21:10)
[2017-12-15] MEDS ORDERED: ZOFRAN ODT4 MG PO (21:10)
[2017-12-15] MEDS ORDERED: PHENERGAN25 MG RC (22:22)
[2017-12-15 22:25] VITALS: BP 142/88; PULSE 91
== END 2017-12-15 22:28 | disposition home or self-care (01) ==
LOC: COL.ER 19:48
PROVIDERS: Nurse Practitioner
DX: R31.9 Hematuria, unspecified (principal); F41.9 Anxiety disorder, unspecified; F32.9 Major depressive disorder, single episode, unspecified; F17.210 Nicotine dependence, cigarettes, uncomplicated; Z87.442 Personal history of urinary calculi; Z95.0 Presence of cardiac pacemaker; Z90.89 Acquired absence of other organs; Z90.49 Acquired absence of other specified parts of digestive tract; Z98.51 Tubal ligation status; Z98.890 Other specified postprocedural states
CPT/HCPCS: J2405; J3010; J7030

== ENCOUNTER 2017-12-29 14:34 | Emergency (ER) | payer MEDICAID ==
[~2017-12-29] VITALS: Ht 162.6 cm; Wt 135.5 kg
[~2017-12-29 14:34] MED LIST changes: +PHENERGAN25 MG RC
[2017-12-29 14:54] LABS: COLLECTION METHOD CLEAN CATCH
[2017-12-29 15:03] LABS: PH 8 (5-8); URINE APPEARANCE Cloudy; URINE BACTERIA None Seen /hpf; URINE BILIRUBIN Negative (NEGATIVE); URINE BLOOD 3+ (NEGATIVE); URINE COLOR Yellow; URINE GLUCOSE Negative (NEGATIVE); URINE KETONE Negative (NEGATIVE); URINE LEUKOCYTE ESTERASE 3+ (NEGATIVE); URINE NITRATE Negative (NEGATIVE); URINE PROTEIN(semi-quant) 1+ (NEGATIVE); URINE RBC >50 /hpf; URINE UROBILINOGEN Negative (NEGATIVE)
[2017-12-29 15:28] VITALS: TEMP 98
[2017-12-29 15:40] LABS: BASO % 0.3 % (0.0-2.0); EOS # 0.3 (0.0-0.7); EOS % 3.6 % (0-4.0); GRAN # 5.6 (1.4-6.5); GRAN % 74.3 % (42.2-75.2); HEMATOCRIT 43.7 % (37.0-47.0); HEMOGLOBIN 14.4 g/dl (12.5-16.0); LYMPH # 1.3 (1.2-3.4); LYMPH % 17.5 % (20.0-51.0); MEAN CELL VOLUME 90 fl (80.0-100.0); MEAN CORPUSCULAR HEMOGLOBIN 30 pg (27.0-31.0); MEAN CORPUSCULAR HGB CONC 33 g/dl (33.0-37.0); MEAN PLATELET VOLUME 10.4 fl (7.4-10.4); MONO # 0.3 (0.1-0.6); PLATELET COUNT 218 K/mm3 (130-400); RED BLOOD COUNT 4.84 M/mm3 (4.10-5.30); REDCELL DISTRIBUTION WIDTH-CV 14.6 % (11.5-14.5)
[2017-12-29 15:51] LABS: ALBUMIN 3.8 gm/dL (3.5-5.0); BILIRUBIN,TOTAL 0.3 mg/dL (0.0-1.0); C-REACTIVE PROTEIN 1.3 mg/dL (0.0-0.9); CALCIUM 9.5 mg/dL (8.4-10.2); CREATININE, serum 0.84 mg/dL (0.52-1.25); POTASSIUM 4.2 mmol/L (3.4-5.0); TOTAL PROTEIN 7.8 gm/dL (6.4-8.2)
[2017-12-29 16:08] VITALS: BP 105/70; PULSE 116
== END 2017-12-29 16:11 | disposition home or self-care (01) ==
LOC: COL.ER 14:34
PROVIDERS: Family Medicine
DX: N20.1 Calculus of ureter (principal); Z87.442 Personal history of urinary calculi
CPT/HCPCS: J2405; J3010; J7030

== ENCOUNTER 2020-12-09 09:20 | Emergency (ER) | payer MEDICAID ==
[~2020-12-09] VITALS: Ht 165.1 cm; Wt 145.5 kg
[2020-12-09 09:27] VITALS: TEMP 97.9
[2020-12-09] MEDS ORDERED: DESYREL DIVIDO150 M1 PO (09:30)
[2020-12-09] MEDS ORDERED: VRAYLAR4.5 MG PO (09:30)
[2020-12-09] MEDS ORDERED: CLEOCIN HC150 MG/CAP PO (11:14)
[2020-12-09] MEDS ORDERED: TYLENOL 325MG325 MG PO (11:14)
[2020-12-09 11:24] VITALS: BP 136/79; PULSE 89
== END 2020-12-09 11:28 | disposition home or self-care (01) ==
LOC: COL.ER 09:20
DX: N61.0 Mastitis without abscess (principal); R00.0 Tachycardia, unspecified; G40.909 Epilepsy, unspecified, not intractable, without status epilepticus; Z95.0 Presence of cardiac pacemaker; Z88.0 Allergy status to penicillin; Z88.6 Allergy status to analgesic agent; Z88.8 Allergy status to other drugs, medicaments and biological substances; Z91.040 Latex allergy status

== ENCOUNTER 2021-04-19 09:54 | Emergency (ER) | payer MEDICAID ==
[~2021-04-19] VITALS: Ht 165.1 cm; Wt 150.0 kg
[~2021-04-19 09:54] MED LIST changes: +CLEOCIN HC150 MG/CAP PO; +DESYREL DIVIDO150 M1 PO; +TYLENOL 325MG325 MG PO; +VRAYLAR4.5 MG PO
[2021-04-19 10:07] VITALS: TEMP 97.9
[2021-04-19 10:26] LABS: COLLECTION METHOD CLEAN CATCH
[2021-04-19 10:30] LABS: BASO % 0.2 % (0.0-2.0); EOS # 0.2 (0.0-0.7); EOS % 1.8 % (0-4.0); GRAN # 7.2 (1.4-6.5); GRAN % 71.2 % (42.2-75.2); HEMATOCRIT 45.8 % (37.0-47.0); HEMOGLOBIN 14.8 g/dl (12.5-16.0); LYMPH # 2.3 (1.2-3.4); LYMPH % 22.3 % (20.0-51.0); MEAN CELL VOLUME 93 fl (80.0-100.0); MEAN CORPUSCULAR HEMOGLOBIN 30 pg (27.0-31.0); MEAN CORPUSCULAR HGB CONC 32 g/dl (33.0-37.0); MONO # 0.4 (0.1-0.6); PLATELET COUNT 326 K/mm3 (130-400); RED BLOOD COUNT 4.92 M/mm3 (4.10-5.30); REDCELL DISTRIBUTION WIDTH-CV 14.5 % (11.5-14.5)
[2021-04-19 10:37] LABS: BUDDING YEAST Present /hpf; MUCOUS Present /lpf; PH 6 (5-8); URINE APPEARANCE Cloudy; URINE BACTERIA Occasional /hpf; URINE BILIRUBIN Negative (NEGATIVE); URINE BLOOD Negative (NEGATIVE); URINE COLOR Yellow; URINE GLUCOSE 3+ (NEGATIVE); URINE KETONE Negative (NEGATIVE); URINE LEUKOCYTE ESTERASE 2+ (NEGATIVE); URINE NITRATE Negative (NEGATIVE); URINE PROTEIN(semi-quant) Negative (NEGATIVE); URINE UROBILINOGEN Negative (NEGATIVE)
[2021-04-19 10:40] LABS: ALBUMIN 3.9 gm/dL (3.5-5.0); BILIRUBIN,TOTAL 0.2 mg/dL (0.0-1.0); CALCIUM 9.1 mg/dL (8.4-10.2); CREATININE, serum 0.91 (0.52-1.25); POTASSIUM 4.3 mmol/L (3.4-5.0); TOTAL PROTEIN 7.4 gm/dL (6.4-8.2)
[2021-04-19] MEDS ORDERED: CEFTIN500 MG PO (12:48)
[2021-04-19] MEDS ORDERED: ZOFRAN ODT4 MG PO (12:50)
[2021-04-19] MEDS ORDERED: NORCO 325 MG-51 TAB PO (12:50)
[2021-04-19 13:15] VITALS: BP 130/68; PULSE 79
== END 2021-04-19 13:15 | disposition home or self-care (01) ==
LOC: COL.ER 09:54
PROVIDERS: Physician Assistant
DX: N30.91 Cystitis, unspecified with hematuria (principal); F31.9 Bipolar disorder, unspecified; R56.9 Unspecified convulsions; F17.200 Nicotine dependence, unspecified, uncomplicated; Z32.02 Encounter for pregnancy test, result negative; Z79.899 Other long term (current) drug therapy
CPT/HCPCS: J0696; J2270; J2405; J7030; Q9967

== ENCOUNTER 2021-07-25 17:29 | Inpatient (IN) | payer MEDICAID ==
[~2021-07-25] VITALS: Ht 165.1 cm; Wt 157.8 kg
[~2021-07-25 17:29] MED LIST changes: +CEFTIN500 MG PO
[2021-07-25 18:39] LABS: BASO % 0.3 % (0.0-2.0); EOS # 0.1 K/mm3 (0.0-0.7); GRAN # 7.2 K/mm3 (1.4-6.5); GRAN % 74.8 % (42.2-75.2); HEMATOCRIT 48.1 % (37.0-47.0); LYMPH # 1.9 K/mm3 (1.2-3.4); LYMPH % 19.3 % (20.0-51.0); MEAN CELL VOLUME 90 fl (80.0-100.0); MEAN CORPUSCULAR HEMOGLOBIN 30 pg (27.0-31.0); MEAN CORPUSCULAR HGB CONC 33 g/dl (33.0-37.0); MEAN PLATELET VOLUME 9.9 fl (7.4-10.4); MONO # 0.4 K/mm3 (0.1-0.6); MONO % 4.2 % (1.7-9.3); PLATELET COUNT 320 K/mm3 (130-400); RED BLOOD COUNT 5.35 M/mm3 (4.10-5.30)
[2021-07-25] MEDS ORDERED: KLONOPIN 1MG1 MG PO (18:47)
[2021-07-25 18:52] LABS: ALBUMIN 3.6 gm/dL (3.5-5.0); BILIRUBIN,TOTAL 0.3 mg/dL (0.2-1.2); CALCIUM 9.5 mg/dL (8.4-10.2); CREATININE, serum 1.06 mg/dL (0.57-1.11); POTASSIUM 4.3 mmol/L (3.5-4.5); TOTAL PROTEIN 8.2 gm/dL (6.2-8.1)
[2021-07-25 19:16] LABS: INR 1.1 (0.8-3.0); PROTHROMBIN TIME 12.3 SECONDS (9.7-12.8)
[2021-07-25 19:19] LABS: PARTIAL THROMBOPLASTIN TIME 29.6 SECONDS (26.0-37.0)
[2021-07-25 19:39] LABS: COLLECTION METHOD CLEAN CATCH
[2021-07-25 19:44] LABS: MUCOUS Present /lpf; PH 6 (5-8); URINE APPEARANCE Hazy; URINE BACTERIA Rare /hpf; URINE BILIRUBIN Negative (NEGATIVE); URINE BLOOD Negative (NEGATIVE); URINE COLOR Yellow; URINE GLUCOSE 3+ (NEGATIVE); URINE KETONE Negative (NEGATIVE); URINE LEUKOCYTE ESTERASE Negative (NEGATIVE); URINE NITRATE Negative (NEGATIVE); URINE PROTEIN(semi-quant) Negative (NEGATIVE); URINE RBC 0-2 /hpf; URINE UROBILINOGEN Negative (NEGATIVE)
--- NOTE | 2021-07-26 02:30 | NUR ---
Vancomycin Initial Dosing Pharmacy Note Ordering provider: ONUR Funes Indication/duration: Sepsis 2nd to cellulitis/possible PNA x 7 days Relevant comorbidities: DM LABS: WBC = 9.6, SCr = 1.06, Tmax = 99.1 F Recommendation: Will draw troughs and follow levels. Loading dose: 2.5 grams Maintenance dose: 1 gram every 8 hours Trough goal: 15-20 ug/mL
[2021-07-26 05:06] LABS: BASO % 0.1 % (0.0-2.0); EOS # 0.1 K/mm3 (0.0-0.7); EOS % 0.5 % (0-4.0); GRAN # 7.4 K/mm3 (1.4-6.5); GRAN % 81.4 % (42.2-75.2); HEMATOCRIT 42.7 % (37.0-47.0); LYMPH # 1.1 K/mm3 (1.2-3.4); LYMPH % 11.8 % (20.0-51.0); MEAN CORPUSCULAR HGB CONC 32 g/dl (33.0-37.0); MONO # 0.6 K/mm3 (0.1-0.6); PLATELET COUNT 229 K/mm3 (130-400); RED BLOOD COUNT 4.46 M/mm3 (4.10-5.30); REDCELL DISTRIBUTION WIDTH-CV 14.3 % (11.5-14.5)
[2021-07-26 05:24] LABS: CALCIUM 8.3 mg/dL (8.4-10.2); CREATININE, serum 0.88 mg/dL (0.57-1.11); POTASSIUM 4.3 mmol/L (3.5-4.5)
[2021-07-26 05:25] LABS: MEAN CELL VOLUME 96 fl (80.0-100.0); MEAN CORPUSCULAR HEMOGLOBIN 30 pg (27.0-31.0)
[2021-07-26 05:26] LABS: HEMOGLOBIN 13.5 g/dl (12.5-16.0)
--- NOTE | 2021-07-26 16:27 | NUR ---
Report received, awaiting patient arrival to the floor.
--- NOTE | 2021-07-26 22:11 | NUR ---
Patient assessed around 1919. Complained of level 8 pain at that time, and given PRN Morphine. Around 2129, complained of level 7 pain, and given another dose of PRN Morphine per orders. Pain to left armpit. Abscess to left armpit with small amount of yellow, thick drainage. Wound culture obtained, and sent to lab. PICC to RUE with IV fluids and ABXs running per orders. LS CTA in upper lobes, diminished in lower. HRR. BSAx4. Abdomen soft and non-tender. Voices no questions, needs, or concerns at this time. In bed with call light within reach.
[2021-07-26 22:39] VITALS: BP 111/66; PULSE 101; TEMP 98.3
[2021-07-26 23:51] VITALS: BP 112/61; PULSE 85; TEMP 99.1
--- NOTE | 2021-07-27 00:05 | NUR ---
Patient complaining of pain to left armpit. Given PRN Morphine as requested.
[2021-07-27 05:00] VITALS: BP 109/60; PULSE 89; TEMP 97.6
--- NOTE | 2021-07-27 05:04 | NUR ---
Patient has been receiving PRN Morphine about every two hours for pain as requested. Small amount of drainage from abscess. Continues on IV fluids and ABXs per orders. Voices no questions, needs, or concerns at this time. In bed with call light within reach.
[2021-07-27 06:55] LABS: HEMATOCRIT 37.3 % (37.0-47.0); HEMOGLOBIN 12.1 g/dl (12.5-16.0); MEAN CELL VOLUME 93 fl (80.0-100.0); MEAN CORPUSCULAR HEMOGLOBIN 30 pg (27.0-31.0); MEAN CORPUSCULAR HGB CONC 32 g/dl (33.0-37.0); MEAN PLATELET VOLUME 10.8 fl (7.4-10.4); PLATELET COUNT 187 K/mm3 (130-400); RED BLOOD COUNT 4.03 M/mm3 (4.10-5.30); REDCELL DISTRIBUTION WIDTH-CV 14.1 % (11.5-14.5)
[2021-07-27 07:08] LABS: CALCIUM 8.5 mg/dL (8.4-10.2); CREATININE, serum 0.64 mg/dL (0.57-1.11); POTASSIUM 3.8 mmol/L (3.5-4.5)
[2021-07-27 07:51] VITALS: BP 134/82; PULSE 92; TEMP 98
--- NOTE | 2021-07-27 08:55 | NUR ---
RA SPO2 83%. PLACED BACK ON 3 LPM NC 92%
--- NOTE | 2021-07-27 09:10 | NUR ---
Patient laying in bed upon entering the room. Patient remains in constant pain that she rates an 8/10. Patient was given PRN morphine. Patient's call light is not working, patient has been calling the desk phone for any needs. A work order has been placed for the call light.
--- NOTE | 2021-07-27 10:37 | NUR ---
Vancomycin Follow-up Pharmacy Note Current regimen: Vancomycin 1 gm IV q8h Vancomycin trough: 7.35 Adjustments: Increase Vancomycin to 1.5 gm IV q8h. Pharmacy will continue to closely monitor and check a Vancomycin trough on 07/28/21.
[2021-07-27 11:39] VITALS: BP 125/81; PULSE 100; TEMP 98
--- NOTE | 2021-07-27 11:48 | NUR ---
First visit from the medical insurance claims specialist. No needs right now.
[2021-07-27 16:13] VITALS: BP 107/63; PULSE 95; TEMP 98
--- NOTE | 2021-07-27 16:18 | NUR ---
beef cattle farm worker met with patient to discuss discharge plan. Patient reports that she lives at home with her life partner Rossi ([phone]) in [place]. Patient reports that she is fully independent with her activities of daily living and that she does not utilize any DME to assist with mobility. Patient has no oxygen needs. Patient reports that she does not have a PCP but she does utilize [facility] in for medication needs with no cost difficulty. Patient reports that she does not have a DPOA-HC established and verbalizes that she does not wish to create one at this time. Patient is not legally to Rossi and states that she has 5 children in total. Oldest child is Simoen Jones (18) whom she states does not have a cell phone. Education provided that if she wishes to not create a DPOA-HC, then legally Simone would be her legal decision maker for medical decisions. Patient verbalizes her understanding of this. Discharge plan: Home
--- NOTE | 2021-07-27 18:00 | NUR ---
Patient has continues to report her pain at an 8/10. Patient was given oxycodone for pain instead of morphine. Patient instructed to call if pain is not relieved.
[2021-07-27 19:29] VITALS: BP 124/69; PULSE 97; TEMP 98.1
[2021-07-27 23:58] VITALS: BP 101/61; PULSE 72; TEMP 98.5
[2021-07-28 04:08] VITALS: BP 104/56; PULSE 93; TEMP 98.5
--- NOTE | 2021-07-28 04:48 | NUR ---
Patient rested quietly throughout night, pain managment with prn oxycodone and Morphine, VS stable, telemetry in use, independent in cares, no s/s of hypo/hyper glycemia, tolerating IV abt w/o issue.
--- NOTE | 2021-07-28 07:17 | NUR ---
Patient c/o uncontrolled left axillary pain. Danni contacted, verbal order of a one time dose of ilana ordered.
[2021-07-28 07:43] LABS: BASO % 0.2 % (0.0-2.0); EOS # 0.1 K/mm3 (0.0-0.7); EOS % 1.7 % (0-4.0); GRAN # 2.9 K/mm3 (1.4-6.5); HEMOGLOBIN 11.9 g/dl (12.5-16.0); LYMPH # 1.5 K/mm3 (1.2-3.4); LYMPH % 31.9 % (20.0-51.0); MEAN CELL VOLUME 92 fl (80.0-100.0); MEAN CORPUSCULAR HEMOGLOBIN 30 pg (27.0-31.0); MEAN CORPUSCULAR HGB CONC 33 g/dl (33.0-37.0); MEAN PLATELET VOLUME 10.6 fl (7.4-10.4); MONO # 0.3 K/mm3 (0.1-0.6); MONO % 5.6 % (1.7-9.3); PLATELET COUNT 155 K/mm3 (130-400); RED BLOOD COUNT 3.94 M/mm3 (4.10-5.30); REDCELL DISTRIBUTION WIDTH-CV 14.1 % (11.5-14.5)
[2021-07-28 07:47] LABS: HEMATOCRIT 36.1 % (37.0-47.0)
[2021-07-28 08:04] VITALS: BP 117/69; PULSE 89; TEMP 98
[2021-07-28 08:13] LABS: CALCIUM 8.7 mg/dL (8.4-10.2); CREATININE, serum 0.66 mg/dL (0.57-1.11); POTASSIUM 3.8 mmol/L (3.5-4.5)
--- NOTE | 2021-07-28 08:57 | NUR ---
Scheduled medication given. Shift assessment preformed. Patient C/O of 810 pain in left axillary region. PRN medication given. PICC line flushed, blood return noted. No s/s of complications at this time. Patient states that she does not have an appetite at this time. Insulin not given. Scaling an flaking noted on patient's heels. Patient denies any further pain, discomfort, or further needs at this time. Call light in reach. VSS. Patient A&O.
[2021-07-28 12:03] VITALS: BP 123/66; PULSE 87; TEMP 98.2
[2021-07-28 16:00] VITALS: BP 120/85; PULSE 93; TEMP 97.9
--- NOTE | 2021-07-28 18:00 | NUR ---
Patient has been struggling with pain control this shift. PRN morphine and ilana given. Scheduled tylenol also given. Rests comfortably, but pain increases with movement. Patient is currently resting in bed eating supper. Antibiotics running as orderd. Denies any further needs at this time. VSS. Patient A&O. Call light in reach.
[2021-07-28 18:52] VITALS: BP 124/83; PULSE 77; TEMP 98.2
--- NOTE | 2021-07-28 22:47 | NUR ---
Patient assessed around 1929. Complained of level 10 pain to left armpit, radiating to left breast. Given PRN Roxicodone for pain as requested. Requested Morphine, but encouraged to take PO pain medication first. Requested Morphine around 2099 for level 9 pain. Given 2nd dose of Roxicodone per orders (may repeat if first dose not effective). Patient continued to complain of level 8 pain around 2229, and given PRN Morphine at that time. Continues on IV ABX per orders for abscess to left armpit. No drainage to area. Patient voices no further questions, needs, or concerns at this time. In bed with call light within reach.
[2021-07-28 23:43] VITALS: BP 102/64; PULSE 96; TEMP 98.2
[2021-07-29 04:11] VITALS: BP 111/65; PULSE 89; TEMP 98
--- NOTE | 2021-07-29 05:51 | NUR ---
Patient has been receiving PRN Roxicodone and Morphine for pain as requested. Did have patient try oral pain medication prior to IV pain medication. Recieved IV ABX per orders. In bed with call light within reach.
[2021-07-29 07:39] VITALS: BP 113/65; PULSE 91; TEMP 97.4
--- NOTE | 2021-07-29 09:50 | NUR ---
Patient laying in bed upon entering the room. Patient c/o pain in her left axilla. Patient requesting morphine and educated on why she is being given oxycodone instead. Patient seemed upset with the explanation. notified and plans to speak with patient.
[2021-07-29 11:17] VITALS: BP 96/65; PULSE 84; TEMP 98.5
[2021-07-29 15:47] VITALS: BP 112/52; PULSE 89; TEMP 98.8
[2021-07-29 19:17] VITALS: BP 137/68; PULSE 87; TEMP 97.9
[2021-07-29 23:16] VITALS: BP 140/63; PULSE 100; TEMP 98
--- NOTE | 2021-07-29 23:46 | NUR ---
ALERT AND OX4. DENIES SOA CHEST PAIN OR DIZZY. PAIN 9/10 TO LEFT UNDER ARM. MORPHINE AND PERC GIVEN. PM MEDS. RT UPPER ARM PICC FLUSHED. TELE- NSR. IND IN ROOM. NO DRAINAGE UNDER ARM. ZOFRAN FOR NAUSEA TONIGHT. POC DISCUSSED. CALL LIGHT WI REACH.
[2021-07-30] VITALS (7 sets, daily range): BP systolic 95–126; BP diastolic 41–92; PULSE 72–93; TEMP 97.2–98.2
[2021-07-30 06:53] LABS: CALCIUM 8.8 mg/dL (8.4-10.2); CREATININE, serum 0.71 mg/dL (0.57-1.11); POTASSIUM 3.7 mmol/L (3.5-4.5)
[2021-07-30 07:02] LABS: BASO % 0.4 % (0.0-2.0); EOS # 0.2 K/mm3 (0.0-0.7); EOS % 3.1 % (0-4.0); GRAN # 3.1 K/mm3 (1.4-6.5); GRAN % 60.5 % (42.2-75.2); HEMATOCRIT 37.3 % (37.0-47.0); HEMOGLOBIN 12.4 g/dl (12.5-16.0); LYMPH # 1.5 K/mm3 (1.2-3.4); LYMPH % 29.7 % (20.0-51.0); MEAN CELL VOLUME 91 fl (80.0-100.0); MEAN CORPUSCULAR HEMOGLOBIN 30 pg (27.0-31.0); MEAN CORPUSCULAR HGB CONC 33 g/dl (33.0-37.0); MEAN PLATELET VOLUME 9.7 fl (7.4-10.4); MONO # 0.3 K/mm3 (0.1-0.6); MONO % 5.7 % (1.7-9.3); PLATELET COUNT 225 K/mm3 (130-400); RED BLOOD COUNT 4.12 M/mm3 (4.10-5.30); REDCELL DISTRIBUTION WIDTH-CV 14.1 % (11.5-14.5)
--- NOTE | 2021-07-30 07:18 | NUR ---
NOTIFIED DR. RDZ OF PT PICC LINE HAVING TROUBLE WITH BLOOD RETURN. DRAWBENCH OPERATOR PERFORMED SEVERAL INTERVENTIONS. REQUEST FOR CATH FLOW ORDERS.
--- NOTE | 2021-07-30 08:30 | NUR ---
PT ALERT AND ORIENTED. PT ASKING FOR PAIN MEDICATIONS AND SCHEDULE. PT HAS DIMINISHED LUNG SOUNDS IN ALL LOBES. PT HAS MILD EDEMAN IN LOWER EXTREMITIES BILATERALLY, NO PITTING. PT HAS 2+ PULSES IN ALL EXTREMITIES. PT ABLE TO AMBULATE INDEPENDENTLY IN ROOM. PT HAS REDENNED LEFT AXILLA, TENDER TO TOUCH. PT CENTRAL LINE FLUSHED, NO BLOOD RETURN NOTED.
--- NOTE | 2021-07-30 10:46 | NUR ---
Cathflo administered per orders into red port at 0905. Rechecked for blood flow at 1028, blood return noted. Flushed with 10ml and medications administered per orders.
--- NOTE | 2021-07-30 13:06 | NUR ---
NOTED PT BLOOD PRESSURE LOW 95/51. RECHECKED AT THIS TIME 126/92
--- NOTE | 2021-07-30 17:05 | NUR ---
PT CONTINUING ON PLAN OF CARE. PT PAIN MANAGED WITH PRN MEDICATION PER ORDERS. PT VITAL SIGNS REMAINED STABLE THIS SHIFT, NO SIGNIFICANT CHANGES NOTED IN PT STATUS. SHOWER OFFERED, PT STATES, "MAYBE LATER." PT ABLE TO CALL FOR NEEDS.
--- NOTE | 2021-07-30 22:33 | NUR ---
ALERT AND OX4. DENIES SOA, CHEST PAIN OR DIZZY. RATES LT UNDER ARM PAIN 02/16. PERCOCET AND PM MEDS GIVEN. IV ANTIBOTICS, BLOOD SUGAR OBTAINED AND TREATED PER ORDER. POC DISCUSSSED. DC TELE. POSSIBLE DC TOMORROW. CALL LIGHT WI REACH.
[2021-07-31 00:05] VITALS: BP 121/53; PULSE 86; TEMP 98.5
--- NOTE | 2021-07-31 05:27 | NUR ---
RESTED THROUGH THE NIGHT WITHOUT INCIDENT. ANTICIPATES DC TODAY.
[2021-07-31 06:44] LABS: BASO % 0.4 % (0.0-2.0); EOS # 0.2 K/mm3 (0.0-0.7); EOS % 2.8 % (0-4.0); GRAN # 3.1 K/mm3 (1.4-6.5); GRAN % 58.2 % (42.2-75.2); HEMOGLOBIN 11.5 g/dl (12.5-16.0); LYMPH # 1.7 K/mm3 (1.2-3.4); LYMPH % 32.1 % (20.0-51.0); MEAN CELL VOLUME 94 fl (80.0-100.0); MEAN CORPUSCULAR HEMOGLOBIN 30 pg (27.0-31.0); MEAN CORPUSCULAR HGB CONC 32 g/dl (33.0-37.0); MEAN PLATELET VOLUME 9.9 fl (7.4-10.4); MONO # 0.3 K/mm3 (0.1-0.6); MONO % 5.7 % (1.7-9.3); PLATELET COUNT 186 K/mm3 (130-400); RED BLOOD COUNT 3.82 M/mm3 (4.10-5.30); REDCELL DISTRIBUTION WIDTH-CV 14.3 % (11.5-14.5)
[2021-07-31 06:52] LABS: HEMATOCRIT 35.8 % (37.0-47.0)
[2021-07-31 06:55] LABS: CREATININE, serum 0.72 mg/dL (0.57-1.11); POTASSIUM 3.7 mmol/L (3.5-4.5)
--- NOTE | 2021-07-31 07:29 | NUR ---
Report received from GOYO Fleming. Pt. resting in bed. This RN introduced self to patient. Pt. reports she would like her PRN pain medication. Pt.'s PRN pain med not due until around 0900. This jingle writer explained to the pt. she would bring in PRN pain medication when it is due. Pt. denies further needs at this time. Call light and belongings in reach.
[2021-07-31 08:27] VITALS: BP 125/73; PULSE 83; TEMP 97.6
--- NOTE | 2021-07-31 09:16 | NUR ---
Pt. progressing w/ plan of care. Assessment complete and AM meds given. Pt. denies needs at this time, call light and belongings in reach.
[2021-07-31] MEDS ORDERED: CLEOCIN HCL300 MG PO (09:33)
[2021-07-31] MEDS ORDERED: GLUCOPHAGE500 MG/TAB PO ×2 (09:33)
[2021-07-31] MEDS ORDERED: DOXYCYCLINE HY100 MG PO (09:34)
[2021-07-31] MEDS ORDERED: GLUCOPHAGE1000 MG PO (09:47)
--- NOTE | 2021-07-31 11:15 | NUR ---
Sales Incentive Analyst was notified that patient will discharge today and needs to establish primary care. PEREZ met with patient who would like to get set up with [facility] in [place], specifically Parul Hanna NP. PEREZ contacted [facility] and faxed clinical records. Appointment made for 08/16/21 @8703. PEREZ provided appointment to community program assistant.
--- NOTE | 2021-07-31 11:50 | NUR ---
Pt.'s PICC line removed per Dr. Corrales/ONUR Barros's order. Pt. tolerated removal well, PICC was removed by charge nurse Shay. Pt. agreeable to follow up with dermatology, general surgery, as well as her PCP. Pt. also agreeable to take new medications as prescribed. Pt. left floor via wheelchair w/ hospital staff SHYANN Meier.
== END 2021-07-31 11:50 | disposition home or self-care (01) | DRG 871 ==
LOC: COL.ER 17:29 → MEDICAL 21:34 → SURG 21:34 → MEDICAL 07-26 15:28
PROVIDERS: Emergency Medicine; Physician Assistant; Student in an Organized Health Care Education/Training Program; ADMIT Internal Medicine
PROC: 02HV33Z Insertion of Infusion Device into Superior Vena Cava, Percutaneous Approach (ICD-10-PCS; principal; 2021-07-26)
DX: A41.9 Sepsis, unspecified organism (principal); J96.01 Acute respiratory failure with hypoxia; J18.9 Pneumonia, unspecified organism; L03.112 Cellulitis of left axilla; L02.412 Cutaneous abscess of left axilla; L73.2 Hidradenitis suppurativa; G40.909 Epilepsy, unspecified, not intractable, without status epilepticus; F31.9 Bipolar disorder, unspecified; M32.9 Systemic lupus erythematosus, unspecified; I48.0 Paroxysmal atrial fibrillation; N20.0 Calculus of kidney; E11.65 Type 2 diabetes mellitus with hyperglycemia; G47.30 Sleep apnea, unspecified; Z20.822 Contact with and (suspected) exposure to COVID-19; Z95.0 Presence of cardiac pacemaker; Z88.0 Allergy status to penicillin; Z87.891 Personal history of nicotine dependence
CPT/HCPCS: 99223-AI; 99232-AI; 99239; C1751; J0692; J1650; J1815; J2270; J2405; J2997; J3370; J7030; J7040; J7050

== ENCOUNTER 2021-08-03 20:16 | Emergency (ER) | payer MEDICAID ==
[~2021-08-03] VITALS: Ht 165.1 cm; Wt 150.0 kg
[~2021-08-03 20:16] MED LIST changes: +CLEOCIN HCL300 MG PO; +DOXYCYCLINE HY100 MG PO; +GLUCOPHAGE1000 MG PO; +GLUCOPHAGE500 MG/TAB PO; +KLONOPIN 1MG1 MG PO
[2021-08-03 20:20] VITALS: TEMP 97.6
[2021-08-03 21:34] LABS: COLLECTION METHOD CLEAN CATCH
[2021-08-03 21:42] LABS: MUCOUS Present (NOT PRESENT); PH 7 (5-8); URINE APPEARANCE Hazy (CLEAR/HAZY); URINE BACTERIA None Seen (NONE SEEN); URINE BILIRUBIN Negative (NEGATIVE); URINE BLOOD Negative (NEGATIVE); URINE COLOR Yellow (YELLOW); URINE GLUCOSE 3+ (NEGATIVE); URINE KETONE Negative (NEGATIVE); URINE LEUKOCYTE ESTERASE Trace (NEGATIVE); URINE NITRATE Negative (NEGATIVE); URINE PROTEIN(semi-quant) Negative (NEGATIVE); URINE UROBILINOGEN Negative (NEGATIVE)
[2021-08-03 22:21] LABS: BASO % 0.2 % (0.0-2.0); EOS # 0.2 K/mm3 (0.0-0.7); EOS % 2.5 % (0-4.0); GRAN # 6.3 K/mm3 (1.4-6.5); GRAN % 68.4 % (42.2-75.2); HEMATOCRIT 40.8 % (37.0-47.0); HEMOGLOBIN 13.8 g/dl (12.5-16.0); LYMPH # 2.2 K/mm3 (1.2-3.4); LYMPH % 23.6 % (20.0-51.0); MEAN CELL VOLUME 90 fl (80.0-100.0); MEAN CORPUSCULAR HEMOGLOBIN 30 pg (27.0-31.0); MEAN CORPUSCULAR HGB CONC 34 g/dl (33.0-37.0); MEAN PLATELET VOLUME 9.7 fl (7.4-10.4); MONO # 0.4 K/mm3 (0.1-0.6); MONO % 4.6 % (1.7-9.3); PLATELET COUNT 234 K/mm3 (130-400); RED BLOOD COUNT 4.56 M/mm3 (4.10-5.30); REDCELL DISTRIBUTION WIDTH-CV 14.2 % (11.5-14.5)
[2021-08-03 22:45] LABS: ALANINE AMINOTRANSFERASE 47 U/L (0-55); ALBUMIN 3.3 gm/dL (3.5-5.0); ALKALINE PHOSPHATASE 103 U/L (40-150); ANION GAP 16 mmol/L (7-16); AST,SGOT 25 U/L (5-34); BILIRUBIN,TOTAL 0.2 mg/dL (0.2-1.2); BLOOD UREA NITROGEN 11 mg/dL (7-19); C-REACTIVE PROTEIN 2.47 mg/dL (0.00-0.50); CARBON DIOXIDE 19 mmol/L (22-29); CHLORIDE 105 mmol/L (98-107); CREATININE, serum 0.85 mg/dL (0.57-1.11); GLUCOSE 249 mg/dL (70-99); POTASSIUM 4.2 mmol/L (3.5-4.5); SODIUM 140 mmol/L (136-145); TOTAL PROTEIN 7.5 gm/dL (6.2-8.1)
[2021-08-03 22:54] LABS: TROPONIN-I < 0.010 ng/mL (0.00-0.033)
[2021-08-04] MEDS ORDERED: NORCO 325 MG-51 TAB PO (01:29)
[2021-08-04 01:45] VITALS: BP 123/98; PULSE 109
== END 2021-08-04 01:45 | disposition home or self-care (01) ==
LOC: COL.ER 20:16
PROVIDERS: Physician Assistant; Student in an Organized Health Care Education/Training Program
DX: L03.114 Cellulitis of left upper limb (principal); L02.414 Cutaneous abscess of left upper limb; E11.9 Type 2 diabetes mellitus without complications; J18.9 Pneumonia, unspecified organism; L73.2 Hidradenitis suppurativa; G40.909 Epilepsy, unspecified, not intractable, without status epilepticus; M32.9 Systemic lupus erythematosus, unspecified; Z87.891 Personal history of nicotine dependence; Z20.822 Contact with and (suspected) exposure to COVID-19; Z79.84 Long term (current) use of oral hypoglycemic drugs; Z79.899 Other long term (current) drug therapy
CPT/HCPCS: J0692; J2270; J2405; J3370; J7030; J7040

== ENCOUNTER 2021-12-01 13:12 | Emergency (ER) | payer MEDICAID ==
[~2021-12-01] VITALS: Ht 165.1 cm; Wt 150.0 kg
[2021-12-01 15:39] LABS: BASO % 0.1 % (0.0-2.0); EOS # 0.1 K/mm3 (0.0-0.7); EOS % 1.8 % (0.0-4.0); GRAN # 5.3 K/mm3 (1.4-6.5); GRAN % 72.4 % (42.2-75.2); HEMATOCRIT 43.8 % (37.0-47.0); HEMOGLOBIN 14.8 g/dl (12.5-16.0); LYMPH # 1.5 K/mm3 (1.2-3.4); LYMPH % 21.1 % (20.0-51.0); MEAN CELL VOLUME 91 fl (80.0-100.0); MEAN CORPUSCULAR HEMOGLOBIN 31 pg (27-31); MEAN CORPUSCULAR HGB CONC 34 g/dl (33.0-37.0); MEAN PLATELET VOLUME 11.4 fl (7.4-10.4); MONO # 0.3 K/mm3 (0.1-0.6); MONO % 4.2 % (1.7-9.3); PLATELET COUNT 217 K/mm3 (130-400); RED BLOOD COUNT 4.83 M/mm3 (4.10-5.30)
[2021-12-01 15:56] LABS: ALBUMIN 3.3 gm/dL (3.5-5.0); BILIRUBIN,TOTAL 0.2 mg/dL (0.2-1.2); C-REACTIVE PROTEIN 2.75 mg/dL (0.00-0.50); CALCIUM 8.9 mg/dL (8.4-10.2); CREATININE, serum 0.9 mg/dL (0.57-1.11); POTASSIUM 4.1 mmol/L (3.5-4.5); TOTAL PROTEIN 7.5 gm/dL (6.2-8.1)
[2021-12-01 16:34] VITALS: TEMP 97.9
[2021-12-01] MEDS ORDERED: NORCO 325 MG-51 TAB PO (17:12)
[2021-12-01] MEDS ORDERED: DOXYCYCLINE 10100 MG PO (17:12)
[2021-12-01] MEDS ORDERED: CLEOCIN HCL300 MG PO (17:12)
[2021-12-01 17:25] VITALS: BP 122/89; PULSE 101
== END 2021-12-01 17:32 | disposition home or self-care (01) ==
LOC: COL.ER 13:12
PROVIDERS: Physician Assistant
DX: N61.0 Mastitis without abscess (principal); L73.2 Hidradenitis suppurativa; L03.317 Cellulitis of buttock; R79.82 Elevated C-reactive protein (CRP); R74.02 Elevation of levels of lactic acid dehydrogenase [LDH]; E11.9 Type 2 diabetes mellitus without complications; F17.210 Nicotine dependence, cigarettes, uncomplicated; Z88.0 Allergy status to penicillin; Z91.040 Latex allergy status; Z79.84 Long term (current) use of oral hypoglycemic drugs
CPT/HCPCS: J7030

== ENCOUNTER 2024-04-18 20:03 | Emergency (ER) | payer MEDICAID ==
[~2024-04-18] VITALS: Ht 162.6 cm; Wt 134.1 kg
[~2024-04-18 20:03] MED LIST changes: +CEPHALEXIN500 M1 PO; +DOXYCYCLINE 10100 MG PO
[2024-04-18 20:26] LABS: COLLECTION METHOD CLEAN CATCH
[2024-04-18 20:34] LABS: URINE APPEARANCE Cloudy (CLEAR/HAZY); URINE BLOOD 3+ (NEGATIVE); URINE COLOR Amber (YELLOW); URINE GLUCOSE Negative (NEGATIVE); URINE KETONE Negative (NEGATIVE); URINE NITRATE Negative (NEGATIVE); URINE PROTEIN(semi-quant) 1+ (NEGATIVE); URINE UROBILINOGEN 0.2 E.U/dL (0.2-1.0)
[2024-04-18 20:42] LABS: BASO % 0.2 % (0.0-2.0); EOS # 0.2 K/mm3 (0.0-0.7); EOS % 1.5 % (0.0-4.0); GRAN # 6.4 K/mm3 (1.4-6.5); GRAN % 63.4 % (42.2-75.2); HEMATOCRIT 45.3 % (37.0-47.0); HEMOGLOBIN 14.5 g/dl (12.5-16.0); LYMPH % 29.6 % (20.0-51.0); MEAN CELL VOLUME 92 fl (80.0-100.0); MEAN CORPUSCULAR HEMOGLOBIN 30 pg (27-31); MEAN CORPUSCULAR HGB CONC 32 g/dl (33.0-37.0); MEAN PLATELET VOLUME 9.4 fl (7.4-10.4); MONO # 0.5 K/mm3 (0.1-0.6); MONO % 5.1 % (1.7-9.3); PLATELET COUNT 365 K/mm3 (130-400); RED BLOOD COUNT 4.92 M/mm3 (4.10-5.30); REDCELL DISTRIBUTION WIDTH-CV 14.9 % (11.5-14.5)
[2024-04-18] MEDS ORDERED: NS 1,000 ML IV ONE (20:45)
[2024-04-18] MEDS ORDERED: Ondansetron 4 MG/2 ML VIAL IV ONE (20:45)
[2024-04-18] MEDS ORDERED: HYDROmorphone 0.5 MG/0.5 ML SYRINGE IV ONE ×2 (20:45→22:00)
[2024-04-18 20:59] LABS: ALBUMIN 3.5 g/dL (3.5-5.0); BILIRUBIN,TOTAL 0.3 mg/dL (0.2-1.2); C-REACTIVE PROTEIN 5.33 mg/dL (0.00-0.50); CALCIUM 9.4 mg/dL (8.4-10.2); CREATININE, serum 0.88 mg/dL (0.57-1.11); POTASSIUM 4.1 mEq/L (3.5-4.5)
[2024-04-18] MEDS ORDERED: NS 50 ML IV SCH (21:35)
[2024-04-18] MEDS ORDERED: Iohexol 300 - 100 ML VIAL IV ONE (21:35)
[2024-04-18 22:06] VITALS: TEMP 98.7
[2024-04-18] MEDS ORDERED: Home HYDROcodone/Acetaminophen 5/325 MG #4 TABS/PACK PO ONE (22:45)
[2024-04-18 23:06] VITALS: BP 101/78; PULSE 100
== END 2024-04-18 23:00 | disposition home or self-care (01) ==
LOC: COL.ER 20:03
PROVIDERS: Nurse Practitioner
DX: R10.9 Unspecified abdominal pain (principal); Z91.040 Latex allergy status; Z87.891 Personal history of nicotine dependence
CPT/HCPCS: J1170; J2405; J7030; Q9967